=== PATIENT | female | born 1950 | race Two or more races ===

== ENCOUNTER 2021-06-28 12:44 | Outpatient (CLI) | payer OTHER | END 2021-06-28 12:45 | disposition home or self-care (01) | LOC: LAB 12:44 | PROVIDERS: ATTEND Urology | DX: N30.00 Acute cystitis without hematuria (principal) ==

== ENCOUNTER 2023-10-05 11:31 | Emergency (ER) | payer OTHER ==
[~2023-10-05] VITALS: Ht 162.6 cm; Wt 68.0 kg
[2023-10-05] MEDS ORDERED: PANADOL EXTRA500 MG PO (11:47)
[2023-10-05 12:57] LABS: HEMOGLOBIN 10.8 g/dL (12.0-15.00); MEAN CELL VOLUME 94.7 fL (80.00-100.00); MEAN CORPUSCULAR HEMOGLOBIN 31.9 pg (27.00-32.0); MEAN CORPUSCULAR HGB CONC 33.7 g/dl (32.0-36.0); RED BLOOD COUNT 3.37 M/uL (4.00-6.00); RED CELL DISTRIBUTION WIDTH 18.2 % (11.5-14.5)
[2023-10-05 13:04] LABS: PLATELET COUNT 105 K/uL (150-450)
[2023-10-05 13:47] LABS: CALCIUM 9.3 mg/dL (8.5-10.1); GFR 9.32; POTASSIUM 4.82 mEq/L (3.5-5.1)
[2023-10-05 13:55] LABS: CREATININE SERUM 4.63 mg/dL (0.55-1.02)
[2023-10-05 14:34] LABS: URINE APPEARANCE Turbid; URINE BILIRRUBIN Negative (NEGATIVE); URINE BLOOD Moderate; URINE COLOR Yellow; URINE GLUCOSE Negative (NEGATIVE); URINE LEUKOCYTE Large; URINE NITRATE Negative; URINE UROBILINOGEN 0.2 E.U./dl
[2023-10-05 14:37] LABS: URINE EPITHELIAL CELLS 194.8 uL (0.0-38.8); URINE RBC 24.2 uL (0.0-20.8)
[2023-10-05 15:03] LABS: URINE BACTERIA > 9821.2 uL (0.0-1933); URINE PROTEIN 100 (NEGATIVE); URINE WBC > 5548.3 uL (0.0-23.2)
== END 2023-10-05 19:39 | disposition home or self-care (01) ==
LOC: ER 11:31
PROVIDERS: Emergency Medicine
DX: R42 Dizziness and giddiness (principal); Z88.6 Allergy status to analgesic agent; N18.9 Chronic kidney disease, unspecified; Z93.8 Other artificial opening status
CPT/HCPCS: 36415; 70450; 71045; 93005; 96365; 96366; 99284; J7030